=== PATIENT | female | born 1945 | race Caucasian/White ===

== ENCOUNTER → 2016-09-16 | Outpatient (CLI) | payer OTHER ==
[~2016-09-16] MED LIST: ACETAMINOPHEN PO; ALLEGRA; ALLEGRA PO; ALLEGRA180 MG PO; ASPIRIN81 M1 PO; BAYER CHEWABLE81 MG PO; CALCIUM + D 6001 TA1 PO; CALTRATE 600+D PO; CARAFATE1 G PO; CRESTOR10 MG PO; DIOVAN160 MG PO; DIOVAN80 M1 DOB; FOSAMAX PO; LOPRESSOR PO; NASACORT10.8 ML NS; NIACIN50 MG PO; PERCOCET 5-3251 TAB PO; PROAIR HFA8.5 GM IH; PROPYLTHIOURACIL PO; PROTONIX PO; STOOL SOFTENER100 M1 PO; VITAMIN B12-FO1 EACH PO; VITAMIN D1000 UNIT PO; VITAMIN E100 UNIT PO; ZANTAC PO; ZANTAC150 M1 PO
[2016-09-16 11:57] LABS: HEMATOCRIT 44.7 % (35.0-45.0); HEMOGLOBIN 14.5 gm/dL (12.0-16.0); MEAN CELL VOLUME 90.8 FL (83-96); MEAN CORPUSCULAR HEMOGLOBIN 29.5 PG (28-34); MEAN CORPUSCULAR HGB CONC 32.5 g/dL (30-36); MEAN PLATELET VOLUME 8.1 FL (6.5-11.5); RED BLOOD COUNT 4.92 X10e (3.90-5.30); RED CELL DISTRIBUTION WIDTH 13.6 % (11.0-15.5)
[2016-09-16 12:17] LABS: ALBUMIN SERUM 4.3 g/dL (3.5-5.0); BUN/CREATININE RATIO 11.81; CALCIUM SERUM 9.4 mg/dL (8.4-10.2); CREATININE SERUM 1.1 mg/dL (0.6-1.4); GLOM FILT RATE Estimated 51.7 mL/min (>60); PHOSPHOROUS 3.6 mg/dL (2.5-4.6); POTASSIUM 3.9 mmol/L (3.5-5.1); URIC ACID 4.7 mg/dL (2.6-7.2)
[2016-09-16 15:05] LABS: CREATININE,RANDOM URINE 150 mg/dL; TOTAL PROTEIN,RANDOM URINE <10 mg/dl (<10)
[2016-09-19 17:26] LABS: CALCIUM (PTHINTACT) 11.2 mg/dL (8.6-10.4)
== END | disposition home or self-care (01) ==
LOC: SLAB 11:37
PROVIDERS: Internal Medicine Nephrology
DX: N18.3 Chronic kidney disease, stage 3 (moderate) (principal)
CPT/HCPCS: 36415; 80048; 82040; 82306; 82310; 82570; 83970; 84100; 84156; 84550; 85027